=== PATIENT | male | born 1965 | race African-American/Black ===

== ENCOUNTER 2023-07-10 13:09 | Emergency (ER) | payer OTHER ==
[2023-07-10 13:43] VITALS: BP 126/67; O2SAT 100
[2023-07-10] MEDS ORDERED: IBUPROFEN 800 MG TABLET PO STA (14:04)
[2023-07-10] MEDS ORDERED: predniSONE 20 MG TABLET PO STA (14:04)
--- NOTE | 2023-07-10 14:06 | XRAY Report ---
PROCEDURE: Foot 3 View RT INDICATIONS: swelling/pain TECHNIQUE: 3 views of the foot were acquired. COMPARISON: 03/16/2022 FINDINGS: Bones: Slight hallux valgus alignment. And scattered degenerative changes. No displaced fracture. No convincing osseous erosion or dislocation. Soft tissues: No suspicious calcifications. IMPRESSION: No acute radiographic abnormality. If there is high concern for further derangement, consider MRI aubree luation. Reviewed by: Julio César Barnes MD on 07/10/2023 2:05 PM PST Approved by: Julio César Barnes MD on 07/10/2023 2:05 PM PST Station ID: [id number]
--- NOTE | 2023-07-10 14:08 | ED Physician Documentation ---
History of Present Illness - Stated complaint Stated Complaint: RT FOOT PX,SWELLING,NUMBNESS - Chief complaint Chief Complaint: Ext Problem - History obtained from History obtained from: Patient - History of Present Illness Timing: Today Pain level max: 8 Pain level now: 7 - Additonal information Additional information: 57-year-old male presents to the emergency department complaining of swelling and pain to the dorsum of the right foot today. Does not recall any specific injury. States he dropped a pipe on his foot at work about a year ago and has had issues with this foot since that time. He did wear rain boots yesterday which is unusual for him. 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 No redness. He is hav ing paresthesias and tingling to the toes occasionally. No calf swelling or pain. No fevers. No chills. Review of Systems Constitutional: denies: Fever, Chills Respiratory: denies: Cough GI: denies: Nausea, Vomiting, Diarrhea PD PAST MEDICAL HISTORY - Past Medical History Past Medical History: No - Past Surgical History Past Surgical History: No - Present Medications Home Medications: Ambulatory Orders Medication Instructions Recorded Confirmed Ibuprofen [Motrin] 800 mg PO Q8H PRN #30 tablet 07/10/23 predniSONE [Deltasone] 10 mg PO [id number] #42 tab 07/10/23 - Allergies Allergies/Adverse Reactions: Allergies Allergy/AdvReac Type Severity Reaction Status Date / Time Penicillins Allergy Unknown Verified 07/10/23 13:40 - Social History Does the pt smoke?: No Smoking Status: Never smoker Does the pt drink ETOH?: Yes Does the pt have substance abuse?: No - Immunizations Immunizations are current?: Yes - POLST Patient has POLST: No PD ED PE NORMAL - Vitals Vital signs reviewed: Yes - General General: Alert and oriented X 3, No acute distress, Well developed/nourished - HEENT HEENT: Moist mucous membranes - Respiratory Respiratory: Clear bilaterally - Derm Derm: Normal color, Warm and dry, No rash - Extremities Extremities: No calf tenderness / cord - Neuro Neuro: Alert and oriented X 3 - Psych Psych: Normal mood, Normal affect - Free text exam Free text exam: R foot - No tenderness along the plantar aspect of the foot. There is tenderness diffusely along the dorsum of the foot. No crepitus. Mild swelling. No skin changes. Pain increases with range of motion of the toes, especially plantar flexing the toes. There is tenderness along the tendons in the dorsum of the foot. Neurovascular intact. Brisk cap refill. Results - Vitals Vitals: Vital Signs - 24 hr 07/10/23 13:34 Temperature 36.2 C L Heart Rate 81 Respiratory 16 Rate Blood Pressure 126/67 O2 Saturation 100 Oxygen O2 Source Room air - Rads (name of study) Left foot x-ray Relevant Findings:: Final report received, See rad report PD Medical Decision Making - ED course Complexity details: reviewed results, re-evaluated patient, considered differential, d/w patient ED course: Patient with pain and swelling to the dorsum of the right foot, started after wearing rain boots yesterday. Appears to be consistent with a tendinitis. 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 Will place on steroids and anti- inflammatories for home. Placed in a postoperative shoe for comfort. No tenderness along the plantar aspect. No evidence of plantar fasciitis. Neurovascular intact. Brisk cap refill. No calf swelling, pain or tenderness. No crepitus. No evidence of infection. Patient counseled regarding signs and symptoms for which I believe and urgent re-evaluation would be necessary. Ugo martin with good understanding of and agreement to plan and is comfortable going home at this time This document was made in part using voice recognition software. While efforts are made to proofread this document, sound alike and grammatical errors may occur. Departure - Departure Disposition: 01 Home, Self Care Clinical Impression: Foot tendinitis Condition: Good Instructions: Tendonitis and Tenosynovitis Follow-Up: your,doctor in 1 week [Other] Prescriptions: predniSONE [Deltasone] 10 mg PO [id number] #42 tab Ibuprofen [Motrin] 800 mg PO Q8H PRN #30 tablet PRN Reason: PAIN &/OR FEVER Comments: Your x-ray does not show any acute abnormalities today. Your prescription was sent to [facility]. Your exam is consistent with tendinitis of the foot, wear the postoperative shoe for the next several days, wearing hard soled shoes will help as well. Icing can help as well, gentle return to activity. Please follow-up with your doctor for further care and return if you worsen. Forms: PCP List Discharge Date/Time: 07/10/23 14:45
== END 2023-07-10 14:45 | disposition home or self-care (01) ==
LOC: ED 13:09
DX: M77.8 Other enthesopathies, not elsewhere classified (principal)
CPT/HCPCS: 73630; 99283; A9270; J7512